=== PATIENT | female | born 1955 | race American Indian/Alaskan Native ===

== ENCOUNTER 2020-02-16 12:37 | Emergency (ER) | payer BC, OTHER ==
--- NOTE | 2020-02-16 12:45 | Emergency Department Report ---
Blank Doc - Documentation Documentation: 65-year-old female that was sent by [facility] for yazan leg welling and uncon trolled HTN. This initial assessment/diagnostic orders/clinical plan/treatment(s) is/are subject to change based on patient's health status, clinical progression and re- assessment by fellow clinical providers in the ED. Further treatment and workup at subsequent clinical providers discretion. Patient/guardians urged not to elope from the ED as their condition may be serious if not clinically assessed and managed. Initial orders include: 1- Patient sent to MAIN ED for further evaluation and treatment 2- cardiac workup
--- NOTE | 2020-02-16 13:16 | XRay Report ---
CHEST PA AND LATERAL VIEWS INDICATION: Chest Pain. COMPARISON: None. FINDINGS: Support devices: None. Heart: Within normal limits. Lungs/Pleura: No acute pulmonary or pleural findings. IMPRESSION: 1. No acute findings. Signer Name: Pete Mckeon MD Signed: 02/16/2020 1:12 PM Workstation Name: [id number]
[2020-02-16 13:45] LABS: Basophils % (Auto) 0.5 % (0.0-1.8); Eosinophils % (Auto) 0.4 % (0.0-4.3); Hematocrit 40.3 % (30.3-42.9); Hemoglobin 13.3 gm/dl (10.1-14.3); Lymphocytes # (Auto) 0.9 K/mm3 (1.2-5.4); Lymphocytes % (Auto) 25.3 % (13.4-35.0); Mean Corpuscular HGB Conc 33 % (30-34); Mean Corpuscular Volume 89 fl (79-97); Monocytes # (Auto) 0.2 K/mm3 (0.0-0.8); Monocytes % (Auto) 5.9 % (0.0-7.3); Platelet Count 234 K/mm3 (140-440); Red Blood Count 4.54 M/mm3 (3.65-5.03); Red Cell Distribution Width 14.3 % (13.2-15.2)
[2020-02-16 13:58] LABS: Alanine Aminotransferase 14 units/L (7-56); Albumin 3.7 g/dL (3.9-5); Blood Urea Nitrogen 13 mg/dL (7-17); Calcium 9.3 mg/dL (8.4-10.2); Hemolysis Index 3; INR 0.88 (0.87-1.13)
[2020-02-16 13:59] LABS: Partial Thromboplastin Time 24.9 Sec. (24.2-36.6)
[2020-02-16 14:07] LABS: BUN/Creatinine Ratio 19
--- NOTE | 2020-02-16 16:05 | Emergency Department Report ---
HPI - General Chief Complaint: Dyspnea/Respdistress Time Seen by Provider: 02/16/20 12:44 - HPI HPI: This is a 65-year-old female presents to the emergency department, sent in by her autism specialist Dr. Packer at [facility], secondary to uncontrolled blood p ressure. The patient says that she is not on any blood pressure medications. She just recently establish care with a primary care physician at [facility] and was subsequently referred to [facility]. Patient denies any chest pain, shortness of breath but does admit to some lower extremity swelling with right greater than left. The patient was found to have an elevated blood pressure with a systolic greater than 200, [facility] cardiology, and she was given 0.2 mg of Catapres and sent in for further evaluation and treatment of her blood pressure. Patient also has a history of diet-controlled diabetes. She is not a tobacco smoker and denies any illicit drug use. She does admit to consuming caffeinated products and has a high salt diet. ED Past Medical Hx - Past Medical History Previous Medical History?: Yes Hx Hypertension: Yes Hx Diabetes: Yes (diet-controlled) - Social History Smoking Status: Never Smoker Substance Use Type: None - Medications Home Medications: Home Medications Medication Instructions Recorded Confirmed Last Taken Type Ibuprofen [Motrin] 800 mg PO Q8H PRN #20 tablet 05/29/14 Unknown Rx Sulfamethoxazole/Trimethoprim 1 each PO BID #14 tablet 05/29/14 Unknown Rx [Bactrim Ds] traMADoL [Ultram] 50 mg PO Q6HR PRN #14 tablet 05/29/14 Unknown Rx hydrALAZINE [Apresoline TAB] 10 mg PO Q8H #90 tablet 02/16/20 Unknown Rx ED Review of Systems ROS: Stated complaint: HYPERTENSION Other details as noted in HPI Comment: All other systems reviewed and negative Constitutional: denies: chills, fever Eyes: denies: eye pain, vision change ENT: denies: ear pain, throat pain Respiratory: denies: cough, shortness of breath Cardiovascular: edema. denies: chest pain Gastrointestinal: denies: abdominal pain, vomiting Genitourinary: denies: dysuria, discharge Musculoskeletal: arthralgia. denies: back pain Skin: denies: rash, lesions Neurological: denies: headache, weakness, numbness, paresthesias Physical Exam - Physical Exam Vital Signs: Vital Signs 02/16/20 12:50 Temperature 97.9 F Pulse Rate 87 Respiratory 18 Rate Blood Pressure 221/118 [Right] O2 Sat by Pulse 97 Oximetry Physical Exam: GENERAL: The patient is well-developed well-nourished. HENT: Normocephalic. Atraumatic. Patient has moist mucous membranes. EYES: Extraocular motions are intact. NECK: Supple. Trachea is midline. CHEST/LUNGS: Clear to auscultation. There is no respiratory distress noted. HEART/CARDIOVASCULAR: Regular. There is no tachycardia. ABDOMEN: Abdomen is soft, nontender. Patient has normal bowel sounds. SKIN: Skin is warm and dry. There is some nonpitting swelling to bilateral distal lower extremities. NEURO: The patient is awake, alert, and oriented. The patient is cooperative. The patient has no focal neurologic deficits. Normal speech. MUSCULOSKELETAL: There is no tenderness or deformity. There is no limitation range of motion. ED Course Vital Signs 02/16/20 12:50 Temperature 97.9 F Pulse Rate 87 Respiratory 18 Rate Blood Pressure 221/118 [Right] O2 Sat by Pulse 97 Oximetry - Reevaluation(s) Reevaluation #1: 02/16/20 22:43 Lab Results 02/16/20 02/16/20 02/16/20 Range/Units 13:15 13:15 13:15 WBC 3.6 L (4.5-11.0) K/mm3 RBC 4.54 (3.65-5.03) M/mm3 Hgb 13.3 (10.1-14.3) gm/dl Hct 40.3 (30.3-42.9) % MCV 89 (79-97) fl MCH 29 (28-32) pg MCHC 33 (30-34) % RDW 14.3 (13.2-15.2) % Plt Count 234 (140-440) K/mm3 Lymph % (Auto) 25.3 (13.4-35.0) % [place] % (Auto) 5.9 (0.0-7.3) % Eos % (Auto) 0.4 (0.0-4.3) % Baso % (Auto) 0.5 (0.0-1.8) % Lymph # (Auto) 0.9 L (1.2-5.4) K/mm3 [place] # (Auto) 0.2 (0.0-0.8) K/mm3 Eos # (Auto) 0.0 (0.0-0.4) K/mm3 Baso # (Auto) 0.0 (0.0-0.1) K/mm3 Seg Neutrophils % 67.9 (40.0-70.0) % Seg Neutrophils # 2.4 (1.8-7.7) K/mm3 PT 12.0 L (12.2-14.9) Sec. INR 0.88 (0.87-1.13) APTT 24.9 (24.2-36.6) Sec. Sodium 138 (137-145) mmol/L Potassium 3.7 (3.6-5.0) mmol/L Chloride 101.1 (98-107) mmol/L Carbon Dioxide 29 (22-30) mmol/L Anion Gap 12 mmol/L BUN 13 (7-17) mg/dL Creatinine 0.7 (0.6-1.2) mg/dL Estimated GFR > 60 ml/min BUN/Creatinine Ratio 19 % Glucose 303 H (65-100) mg/dL Calcium 9.3 (8.4-10.2) mg/dL Magnesium (1.7-2.3) mg/dL Total Bilirubin 0.40 (0.1-1.2) mg/dL AST 12 (5-40) units/L ALT 14 (7-56) units/L Alkaline Phosphatase 81 (35-129) units/L Troponin T < 0.010 (0.00-0.029) ng/mL NT-Pro-B Natriuret Pep (0-900) pg/mL Total Protein 7.2 (6.3-8.2) g/dL Albumin 3.7 L (3.9-5) g/dL Albumin/Globulin Ratio 1.1 % 02/16/20 02/16/20 02/16/20 Range/Units 13:15 13:15 15:49 WBC (4.5-11.0) K/mm3 RBC (3.65-5.03) M/mm3 Hgb (10.1-14.3) gm/dl Hct (30.3-42.9) % MCV (79-97) fl MCH (28-32) pg MCHC (30-34) % RDW (13.2-15.2) % Plt Count (140-440) K/mm3 Lymph % (Auto) (13.4-35.0) % [place] % (Auto) (0.0-7.3) % Eos % (Auto) (0.0-4.3) % Baso % (Auto) (0.0-1.8) % Lymph # (Auto) (1.2-5.4) K/mm3 [place] # (Auto) (0.0-0.8) K/mm3 Eos # (Auto) (0.0-0.4) K/mm3 Baso # (Auto) (0.0-0.1) K/mm3 Seg Neutrophils % (40.0-70.0) % Seg Neutrophils # (1.8-7.7) K/mm3 PT (12.2-14.9) Sec. INR (0.87-1.13) APTT (24.2-36.6) Sec. Sodium (137-145) mmol/L Potassium (3.6-5.0) mmol/L Chloride (98-107) mmol/L Carbon Dioxide (22-30) mmol/L Anion Gap mmol/L BUN (7-17) mg/dL Creatinine (0.6-1.2) mg/dL Estimated GFR ml/min BUN/Creatinine Ratio % Glucose (65-100) mg/dL Calcium (8.4-10.2) mg/dL Magnesium 2.10 (1.7-2.3) mg/dL Total Bilirubin (0.1-1.2) mg/dL AST (5-40) units/L ALT (7-56) units/L Alkaline Phosphatase (35-129) units/L Troponin T < 0.010 (0.00-0.029) ng/mL NT-Pro-B Natriuret Pep 94.84 (0-900) pg/mL Total Protein (6.3-8.2) g/dL Albumin (3.9-5) g/dL Albumin/Globulin Ratio % Reevaluation #2: 02/16/20 22:43 Vital Signs 02/16/20 02/16/20 02/16/20 12:50 16:39 16:40 Temperature 97.9 F Pulse Rate 87 63 63 Respiratory 18 Rate Blood Pressure 229/115 229/115 Blood Pressure 221/118 [Right] O2 Sat by Pulse 97 Oximetry 02/16/20 17:25 Temperature Pulse Rate 79 Respiratory 20 Rate Blood Pressure Blood Pressure 155/81 [Right] O2 Sat by Pulse 100 Oximetry ED Medical Decision Making - Lab Data Result diagrams: 02/16/20 13:15 02/16/20 13:15 - EKG Data -: EKG Interpreted by Me EKG shows normal: sinus rhythm, axis, intervals, QRS complexes, ST-T waves Rate: normal - EKG Data When compared to previous EKG there are: previous EKG unavailable Interpretation: normal EKG - Radiology Data Radiology results: report reviewed, image reviewed interpreted by me: Chest x-ray does not show any acute process. There are no pleural effusions, obvious pneumonia and there is no pneumothorax. No significant cardiomegaly. DUPLEX DOPPLER LOWER EXTREMITY VEINS, BILATERAL INDICATION / CLINICAL INFORMATION: leg swelling. TECHNIQUE: Duplex doppler imaging was performed through the veins of both lower extremities using venous compression and other maneuvers. COMPARISON: None available. FINDINGS: RIGHT COMMON FEMORAL VEIN: Negative. RIGHT FEMORAL VEIN: Negative. RIGHT POPLITEAL VEIN: Negative. RIGHT CALF VEINS: Negative. LEFT COMMON FEMORAL VEIN: Negative. LEFT FEMORAL VEIN: Negative. LEFT POPLITEAL VEIN: Negative. LEFT CALF VEINS: Negative. ADDITIONAL FINDINGS: None. IMPRESSION: 1. No sonographic evidence for DVT in either lower extremity. - Medical Decision Making This patient was sent to the emergency department for uncontrolled blood pressure. The patient is recently began seeing the cardiology group, and also just establish care with [facility]. She has no complaints of any chest pain, back pain, shortness of breath, but does complain of some swelling to the bilateral lower extremities. A venous Doppler ultrasound was done that does not show any evidence of DVT or any other acute process. Patient's labs have been unremarkable including CBC, metabolic panel, proBNP, troponin level. An EKG was performed that does not show any morphology consistent with ST elevation myocardial infarction or any dysrhythmia. The patient was given a dose of IV hydralazine and labetalol and her blood pressure came down to a much more reasonable level. For all these reasons patient appears safe for discharge home at this time. She has been started on hydralazine. We discussed staying away from foods that are high in salt and caffeinated products, and keeping a blood pressure log. She will follow-up once again with her primary care physician and autism specialist. She will return to the emergency department with any worsening of her symptoms or with any acute distress. Critical Care Time: No Critical care attestation.: If time is entered above; I have spent that time in minutes in the direct care of this critically ill patient, excluding procedure time. ED Disposition Clinical Impression: Asymptomatic hypertensive urgency, Swelling of both lower extremities, Hyperglycemia due to diabetes mellitus Disposition: DC- TO HOME OR SELFCARE Is pt being admited?: No Condition: Stable Instructions: Diabetes Mellitus Type 2 in Adults (ED), Leg Edema (ED), Hypertension (ED) Additional Instructions: Please follow-up with your primary care physician and autism specialist in the next few days. Try and stay away from foods that are high in salt and caffeinated products to help with your blood pressure. Keep a blood pressure log. I am starting you on a blood pressure medication called hydralazine. Stay away from foods that are high in sugar, carbohydrates and starches. Keep a blood sugar log. Return to the emergency department with any worsening of your symptoms, new or concerning symptoms not addressed during this current emergency department visit, or with any acute distress. Prescriptions: hydrALAZINE [Apresoline TAB] 10 mg PO Q8H #90 tablet Referrals: [facility], [facility] [Provider Group] - 2-3 Days [facility] [Provider Group] - 2-3 Days Time of Disposition: 17:42
[2020-02-16] MEDS ORDERED: hydrALAZINE 20 MG/1 ML INJ IV ONE (16:06)
--- NOTE | 2020-02-16 16:44 | Vascular Lab Report ---
DUPLEX DOPPLER LOWER EXTREMITY VEINS, BILATERAL INDICATION / CLINICAL INFORMATION: leg swelling. TECHNIQUE: Duplex doppler imaging was performed through the veins of both lower extremities using venous jimmy virgil and other maneuvers. COMPARISON: None available. FINDINGS: RIGHT COMMON FEMORAL VEIN: Negative. RIGHT FEMORAL VEIN: Negative. RIGHT POPLITEAL VEIN: Negative. RIGHT CALF VEINS: Negative. LEFT COMMON FEMORAL VEIN: Negative. LEFT FEMORAL VEIN: Negative. LEFT POPLITEAL VEIN: Negative. LEFT CALF VEINS: Negative. ADDITIONAL FINDINGS: None. IMPRESSION: 1. No sonographic evidence for DVT in either lower extremity. Signer Name: Brayan Saeed MD Signed: 02/16/2020 4:38 PM Workstation Name: [id number]
[2020-02-16 17:26] VITALS: BP 155/81
== END 2020-02-16 18:00 | disposition home or self-care (01) ==
LOC: ED 12:37
DX: I16.0 Hypertensive urgency (principal); M79.89 Other specified soft tissue disorders; E11.65 Type 2 diabetes mellitus with hyperglycemia; I10 Essential (primary) hypertension; Z79.899 Other long term (current) drug therapy
CPT/HCPCS: 36415; 71046; 80053; 83735; 83880; 84484; 85025; 85610; 85730; 93005; 93970; 96374; 99285; J0360

== ENCOUNTER 2020-02-18 16:44 | Emergency (ER) | payer BC ==
[2020-02-18 16:52] VITALS: BP 210/113
--- NOTE | 2020-02-18 16:53 | Event Note ---
ED Screening Note Date of service: 02/18/20 Time: 16:51 ED Screening Note: 65 y o female returns after being evaluated on [place] cc of BP elevation with headaches, blurred vision and no reduced with meds she was presecribed. States BP keeps going up This initial assessment/diagnostic orders/clinical plan/treatment(s) is/are subject to change based on patients health status, clinical progression and re- assessment by fellow clinical providers in the ED. Further treatment and workup at subsequent clinical providers discretion. Patient/guardian urged not to elope from the ED as their condition may be serious if not clinically assessed and managed. Initial orders include: basic labs ekg
[2020-02-18 17:25] LABS: Eosinophils % (Auto) 0.3 % (0.0-4.3); Hematocrit 39.7 % (30.3-42.9); Hemoglobin 13.2 gm/dl (10.1-14.3); Lymphocytes # (Auto) 1.2 K/mm3 (1.2-5.4); Lymphocytes % (Auto) 26.4 % (13.4-35.0); Mean Corpuscular HGB Conc 33 % (30-34); Mean Corpuscular Volume 90 fl (79-97); Monocytes # (Auto) 0.4 K/mm3 (0.0-0.8); Monocytes % (Auto) 7.8 % (0.0-7.3); Platelet Count 246 K/mm3 (140-440); Red Blood Count 4.44 M/mm3 (3.65-5.03); Red Cell Distribution Width 14.7 % (13.2-15.2)
[2020-02-18 17:42] LABS: Blood Urea Nitrogen 16 mg/dL (7-17); Calcium 9.3 mg/dL (8.4-10.2); Hemolysis Index 30
[2020-02-18 17:53] LABS: BUN/Creatinine Ratio 23
== END 2020-02-18 23:08 | disposition left against medical advice (07) ==
LOC: ED 16:44
DX: I10 Essential (primary) hypertension (principal); Z53.21 Procedure and treatment not carried out due to patient leaving prior to being seen by health care provider
CPT/HCPCS: 36415; 80048; 85025; 93005